=== PATIENT | female | born 1985 | race Caucasian/White ===

== ENCOUNTER 2024-12-28 18:54 | Inpatient (IN) ==
--- NOTE | 2024-12-28 19:22 | Emergency Department Note ---
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 The patient notes that she has undergone 6 weeks of radiation to the LLE. Over the past week she has noted a color change to the left medial ankle that tracks through the calf region medially near the incision site. Patient notes increasing pain. She notes trouble bearing weight secondary to the pain. She denies any fevers, chills, nausea or vomiting. The patient is currently on immunotherapy last of which was administered in late November, last month. Home Medications Medication Instructions Recorded Confirmed Type Bacillus coagulans 10 billion cell 10 cell PO DAILY 10/26/24 12/28/24 History capsule,delayed release (Probiotic (B. coagulans)) K3 2 tab PO DAILY 10/26/24 12/28/24 History Magnesium 1 tab PO DAILY 10/26/24 12/28/24 History Tudca 1 tab PO DAILY 10/26/24 12/28/24 History arginix 2 tab PO DAILY 10/26/24 12/28/24 History beef organ complex 1 dose PO DAILY 10/26/24 12/28/24 History berberine chloride 500 mg capsule 1,000 mg PO DAILY 10/26/24 12/28/24 History cholecalciferol (vitamin D3) 25 1,000 unit PO DAILY 10/26/24 12/28/24 History mcg (1,000 unit) capsule congaplex 3 tab PO DAILY 10/26/24 12/28/24 History greens powder 1 dose PO DAILY 10/26/24 12/28/24 History mushroom complex 3 tab PO DAILY 10/26/24 12/28/24 History oxycodone-acetaminophen 5 mg-325 1 tab PO Q6H PRN Pain 10/26/24 12/28/24 History mg tablet quercetin 500 mg capsule 500 mg PO DIRECTED 10/26/24 12/28/24 History selenium 200 mcg capsule 200 mcg PO DAILY 10/26/24 12/28/24 History zinc 1 tab PO DAILY 10/26/24 12/28/24 History lidocaine 5 % topical cream 1 applic topical QID PRN pain #30 12/19/24 12/28/24 Rx grams silver sulfadiazine 1 % topical 1 applic topical BID Radiation 12/19/24 12/28/24 Rx cream (Silvadene) dermatitis. 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 History of surgery on lower extremity excision of left lower leg soft tissue sarcoma @ [facility] 10/11 S/P abdominoplasty 2005 Status post cholecystectomy Family History (Updated 10/26/24 @ 09:30 by Val Peralta RN) Grandmother (Maternal) Cancer Colon and breast Heart disease Social History Smoking Status: Never smoker Second Hand Exposure: Yes (childhood ); Hx Alcohol Use: No Hx Substance Use: No Preferred Language: Chinese Communication Ability: Effective Visual Impairment: Limited Hearing Ability: Normal Beliefs That Will Affect Care: None marital status: Current Living Situation: Spouse current occupational status: employed 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 How many Children do You have: 2 Feels Safe at Home: Yes Diet: regular during the past year weight has: remained stable Gender Identity: Female Assistive Devices: Crutches and Glasses Review of Systems A total of 10 systems reviewed and were otherwise negative Physical Exam Vital Signs Vital Signs - 24 hr 12/28/24 18:57 12/28/24 22:19 12/28/24 22:19 Temperature 36.4 C L Temperature Source Temporal Artery Scan Pulse Rate 92 H Pulse Rate from SpO2 Sensor Respiratory Rate 18 Respiratory Effort / Characteristics Non-Labored Spontaneous Respiratory Depth Normal Respiratory Pattern Regular Blood Pressure 145/100 H 131/92 131/92 Blood Pressure Mean 115 110 110 Blood Pressure Position Sitting Pulse Oximetry 98 98 Oxygen Delivery Method Room Air Sepsis Recent Fever Within 48 Hours No Sepsis New/Unexplained Change in Mental Status N/A Sepsis Action Taken by Nursing No Action Required 12/28/24 22:19 12/28/24 22:19 12/28/24 22:19 Temperature Temperature Source Pulse Rate Pulse Rate from SpO2 Sensor Respiratory Rate Respiratory Effort / Characteristics Respiratory Depth Respiratory Pattern Blood Pressure 131/92 131/92 131/92 Blood Pressure Mean 110 110 110 Blood Pressure Position Pulse Oximetry Oxygen Delivery Method Sepsis Recent Fever Within 48 Hours Sepsis New/Unexplained Change in Mental Status Sepsis Action Taken by Nursing 12/28/24 22:19 12/28/24 22:19 12/28/24 22:19 Temperature Temperature Source Pulse Rate Pulse Rate from SpO2 Sensor Respiratory Rate Respiratory Effort / Characteristics Respiratory Depth Respiratory Pattern Blood Pressure 131/92 131/92 131/92 Blood Pressure Mean 110 110 110 Blood Pressure Position Pulse Oximetry Oxygen Delivery Method Sepsis Recent Fever Within 48 Hours Sepsis New/Unexplained Change in Mental Status Sepsis Action Taken by Nursing 12/28/24 22:19 12/28/24 22:19 12/28/24 22:19 Temperature Temperature Source Pulse Rate Pulse Rate from SpO2 Sensor Respiratory Rate Respiratory Effort / Characteristics Respiratory Depth Respiratory Pattern Blood Pressure 131/92 131/92 131/92 Blood Pressure Mean 110 110 110 Blood Pressure Position Pulse Oximetry Oxygen Delivery Method Sepsis Recent Fever Within 48 Hours Sepsis New/Unexplained Change in Mental Status Sepsis Action Taken by Nursing 12/28/24 22:19 12/28/24 22:19 12/28/24 22:21 Temperature Temperature Source Pulse Rate 77 Pulse Rate from SpO2 Sensor 76 Respiratory Rate Respiratory Effort / Characteristics Respiratory Depth Respiratory Pattern Blood Pressure 131/92 131/92 Blood Pressure Mean 110 110 Blood Pressure Position Pulse Oximetry 97 Oxygen Delivery Method Sepsis Recent Fever Within 48 Hours Sepsis New/Unexplained Change in Mental Status Sepsis Action Taken by Nursing 12/28/24 23:01 12/28/24 23:10 12/28/24 23:18 Temperature Temperature Source Pulse Rate 81 79 Pulse Rate from SpO2 Sensor Respiratory Rate 12 Respiratory Effort / Characteristics Non-Labored Respiratory Depth Normal Respiratory Pattern Blood Pressure Blood Pressure Mean Blood Pressure Position Pulse Oximetry Oxygen Delivery Method Sepsis Recent Fever Within 48 Hours Sepsis New/Unexplained Change in Mental Status Sepsis Action Taken by Nursing 12/28/24 23:21 12/28/24 23:33 12/28/24 23:45 Temperature Temperature Source Pulse Rate 78 74 78 Pulse Rate from SpO2 Sensor Respiratory Rate 17 17 13 Respiratory Effort / Characteristics Respiratory Depth Respiratory Pattern Blood Pressure Blood Pressure Mean Blood Pressure Position Pulse Oximetry Oxygen Delivery Method Sepsis Recent Fever Within 48 Hours Sepsis New/Unexplained Change in Mental Status Sepsis Action Taken by Nursing 12/29/24 00:29 Temperature Temperature Source Pulse Rate Pulse Rate from SpO2 Sensor Respiratory Rate Respiratory Effort / Characteristics Respiratory Depth Respiratory Pattern Blood Pressure Blood Pressure Mean Blood Pressure Position Pulse Oximetry Oxygen Delivery Method Room Air Sepsis Recent Fever Within 48 Hours Sepsis New/Unexplained Change in Mental Status Sepsis Action Taken by Nursing VITAL SIGNS - Vital signs and nursing notes were reviewed. Stable and afebrile. GENERAL - 39-year-old female appearing her stated age who is in no acute distress. Communicates well with provider and answers questions appropriately. SKIN -the left ankle area does have a darkened erythematous hue with surrounding purpleish regions and whitish regions. Proximal to this there is a well- approximated and healed incision tracking throughout the medial aspect of the left lower extremity with surrounding erythema. Mild edema to this area noted as well. HEAD - NC/AT. EYES - PERRL with EOMI bilaterally. Sclera anicteric. EARS - No deformities of external structures noted on gross examination bilaterally. NOSE - Midline and without cyanosis. No epistaxis or purulent drainage noted. MOUTH/OROPHARYNX - Without perioral cyanosis. NECK - Neck with FROM. No nuchal rigidity. LUNGS - CTA CARDIAC - RRR EXTREMITIES - No clubbing or peripheral cyanosis. Skin as above. Left medial ankle region tender to palpation. Left results pedis pulse within normal limits. No bony tenderness. No crepitus. +5/5 strength noted in UE/LE bilaterally. NEUROLOGIC - Cranial nerves II through XII grossly intact. Sensory intact at the left lower extremity without deficit. PSYCH - alert, oriented and pleasant on exam Course Administered Medications Fluticasone Propionate (Fluticasone Propionate Na Spr 16 Gm Btl) 2 sprays NA BID RACHELE Stop: 01/27/25 22:44 Last Admin: 12/28/24 23:57 Dose: 2 sprays Documented By: MILES Discontinued Medications Cefepime HCl (Maxipime 2000mg) 2,000 mg in 20 mls @ 5 mls/min IV NOW STA; Protocol Stop: 12/28/24 21:40 Last Admin: 12/28/24 22:11 Dose: 5 mls/min Documented By: MILES Daptomycin 500 mg/ Syringe 10 mls @ 5 mls/min IV NOW ONE; Protocol Stop: 12/28/24 22:46 Last Admin: 12/28/24 22:53 Dose: 5 mls/min Documented By: MILES Medical Decision Making Laboratory Data 12/28/24 19:58 12/28/24 19:58 Lab Results 12/28/24 Range/Units 19:58 WBC 7.26 (4.8-10.8) K/ul RBC 4.71 (4.20-5.40) M/uL Hgb 13.4 (12.0-16.0) g/dl Hct 40.4 (37.0-47.0) % MCV 85.8 (80.0-100.0) fL MCH 28.5 (25.0-34.0) pg MCHC 33.2 (32.0-36.0) g/dL RDW Std Deviation 38.3 (36.4-46.3) fL RDW Coeff of Sara 12.3 (11.5-14.5) % Plt Count 279 (130-400) K/uL MPV 9.3 L (9.4-12.4) fL Immature Gran % (Auto) 0.3 % Neut % (Auto) 55.0 % Lymph % (Auto) 29.9 % [place] % (Auto) 8.3 % Eos % (Auto) 5.1 % Baso % (Auto) 1.4 % Neut # (Auto) 4.00 (1.40-6.50) K/uL Lymph # (Auto) 2.17 (1.20-3.40) K/uL [place] # (Auto) 0.60 H (0.11-0.59) K/uL Eos # (Auto) 0.37 (0.00-0.50) K/uL Baso # (Auto) 0.10 (0.00-0.20) K/uL Immature Gran # (Auto) 0.02 (0.01-0.20) K/uL ESR 13 (0-20) mm/hr Sodium 139 (136-145) mmol/L Potassium 3.9 (3.5-5.1) mmol/L Chloride 105 (98-107) mmol/L Carbon Dioxide 29 (21-32) mmol/L Anion Gap 5 (3-11) BUN 18 (6-23) mg/dl Creatinine 0.96 (0.6-1.2) mg/dl Est Cr Clr Drug Dosing 92.5 ml/min eGFR 78.15 BUN/Creatinine Ratio 18.8 (10-20) Glucose 92 (70-99(Fasting)) mg/dl Calcium 9.4 (8.6-10.3) mg/dl Total Bilirubin 0.3 (0.2-1.0) mg/dl AST 21 (13-39) U/L ALT 32 (7-52) U/L Alkaline Phosphatase 67 (34-104) U/L Total Protein 6.9 (6.0-8.3) gm/dl Albumin 4.4 (3.4-5.0) gm/dl Globulin 2.5 (2.5-4.0) gm/dl Albumin/Globulin Ratio 1.8 (0.9-2) Procalcitonin < 0.02 (0-0.5) ng/ml HCG, Qual Negative (Negative) Imaging Data Radiologist's Impression: Venous Doppler Study 12/28/24 19:30 Exam(s): US VENOUS LEFT LOWER EXTREMITY EXAM: US Duplex Left Lower Extremity Veins CLINICAL HISTORY: Reason for exam: L leg edema, hx radiation and sarcoma surgery. TECHNIQUE: Real-time duplex ultrasound scan of the left lower extremity veins integrating B-mode two-dimensional vascular structure, Doppler spectral analysis, color flow Doppler imaging and compression. COMPARISON: No relevant prior studies available. FINDINGS: Deep veins: No DVT in the visualized common femoral, femoral, proximal deep femoral or popliteal veins. The veins demonstrate normal color flow, are normally compressible, with normal phasic flow and/or augmentation response. Superficial veins: No thrombus in the visualized great saphenous vein. Soft tissues: There is soft tissue edema.. IMPRESSION: No ultrasound evidence of deep venous thrombosis in the left lower extremity.. Electronically signed by: Chas Whiting MD 12/28/24 23:05 PM Ankle X-Ray 12/28/24 19:32 INDICATION: Infection. Pain. TECHNIQUE: 3 views of the left ankle. 2 views of the left tibia/fibula. COMPARISON: No relevant priors. FINDINGS: No acute fracture or dislocation. No lytic or blastic bony lesions seen. No evidence of cortical erosion. Mild degenerative changes in the midfoot. Soft tissue swelling. Surgical clips noted. IMPRESSION: Soft tissue swelling without acute osseous abnormality evident. Electronically signed by Zheng Blake 12-28-2024 8:07 PM Tibia/Fibula X-Ray 12/28/24 19:32 INDICATION: Infection. Pain. TECHNIQUE: 3 views of the left ankle. 2 views of the left tibia/fibula. COMPARISON: No relevant priors. FINDINGS: No acute fracture or dislocation. No lytic or blastic bony lesions seen. No evidence of cortical erosion. Mild degenerative changes in the midfoot. Soft tissue swelling. Surgical clips noted. IMPRESSION: Soft tissue swelling without acute osseous abnormality evident. Electronically signed by Zheng Blake 12-28-2024 8:[address] 12/28/24 22:14 Exam(s): CT LEFT ANKLE Without Contrast EXAM: CT Left Lower Extremity Without Intravenous Contrast, Ankle CLINICAL HISTORY: Reason for exam: Concern for osteomyelitis. TECHNIQUE: Axial computed tomography images of the left ankle without intravenous contrast. CTDI is 24.91 mGy and DLP is 583.95 mGy-cm. Automated exposure control was utilized for the study. A dose lowering technique was utilized adhering to the principles of ALARA. COMPARISON: X-rays dated 12/28/2024. FINDINGS: Bones/joints: No acute fracture. No dislocation. There is osteopenia. No gross bony destruction is seen. Soft tissues: Surgical clips are seen. There is soft tissue swelling and edema. No discrete fluid collection is seen.. IMPRESSION: There is soft tissue swelling and edema. Osteopenia. If further evaluation is clinically necessary, consider correlation with MRI Electronically signed by: Chas Whiting MD 12/28/24 23:20 PM [facility] Narrative Patient was seen and evaluated as above in room C11b. Review was performed of triage nursing notes and vital signs. I did review pertinent visits and patient history. After obtaining a thorough history and physical examination the above work up was performed. Patient presents for evaluation of possible infection to the left lower extremity. Erythema of the left lower extremity may be postradiation versus developing cellulitis/infection. Options of care were discussed with the patient. IV access was established. Labs were drawn. Left tib/fib and left ankle x-rays were performed. The monitor projection these were negative for radiographic evidence of osteomyelitis. Soft tissue edema noted. Formal radiology report is as above. Left Doppler study negative for DVT. Labs reveal no leukocytosis or concerning anemia. No emergent metabolic disturbance. Procalcitonin as well as inflammatory markers thus far are negative at this time. CRP still pending. I discussed options with the patient. He developing cellulitis/infection is still possible. I do believe that IV antibiotics and further evaluation and management in the inpatient setting is warranted. IV cefepime ordered. Case discussed with the hospitalist service. Please refer to further documentation regarding her stay. GCS: 15 In the evaluation and treatment of this patient the following differential diagnoses were entertained: Cellulitis, abscess, osteomyelitis, necrotizing fasciitis, postradiation integument change, among others Impression & Plan Leg edema, left, Cellulitis Discharge Plan Visit Data Chief Complaint: Infection Stated Complaint: POSSIBLE ANKLE INFECTION ED Provider: Maciej Bazan ED Midlevel Provider: Bud Nye Discharge Problem: Leg edema, left, Cellulitis Patient Disposition: Admitted As Inpatient Condition: Good Discharge Instructions Interventions: ED Discharge Assessment Last Done: 12/29/24 00:29 Forms Stand Alone Forms: My [facility] [employer] Prescriptions Prescriptions: No Action oxycodone-acetaminophen 5-325 mg tablet 1 tab PO Q6H PRN (Reason: Pain) Tudca 1 tab PO DAILY berberine chloride 500 mg capsule 1,000 mg PO DAILY Magnesium 1 tab PO DAILY Probiotic (B. coagulans) 10 billion cell capsule,delayed release(DR/EC) 10 cell PO DAILY quercetin 500 mg capsule 500 mg PO DIRECTED selenium 200 mcg capsule 200 mcg PO DAILY cholecalciferol (vitamin D3) 25 mcg (1,000 unit) capsule 1,000 unit PO DAILY arginix 2 tab PO DAILY beef organ complex 1 dose PO DAILY mushroom complex 3 tab PO DAILY zinc 1 tab PO DAILY K3 2 tab PO DAILY greens powder 1 dose PO DAILY congaplex 3 tab PO DAILY silver sulfadiazine [Silvadene] 1 % cream 1 applic topical BID Qty: 85 4RF Rx Instructions: apply a 1.5 mm thickness lidocaine 5 % cream 1 applic topical QID PRN (Reason: pain) Qty: 30 4RF tramadol 50 mg tablet 50 mg PO Q8H PRN (Reason: pain) Qty: 60 3RF Referrals Referrals: Carmen Washington PA-C [Primary Care Provider] -
--- NOTE | 2024-12-28 20:07 | XRay Report ---
INDICATION: Infection. Pain. TECHNIQUE: 3 views of the left ankle. 2 views of the left tibia/fibula. COMPARISON: No relevant priors. FINDINGS: No acute fracture or dislocation. No lytic or blastic bony lesions seen. No evidence of cortical erosion. Mild degenerative changes in the midfoot. Soft tissue swelling. Surgical clips noted. IMPRESSION: Soft tissue swelling without acute osseous abnormality evident. Electronically signed by Zheng Blake 12-28-2024 8:07 PM
[2024-12-28 20:20] LABS: Basophils % (auto) 1.4 %; Eosinophils # (auto) 0.37 K/uL (0.00-0.50); Eosinophils % (auto) 5.1 %; Hematocrit (blood only) 40.4 % (37.0-47.0); Hemoglobin 13.4 g/dl (12.0-16.0); Immature Granulocytes # (auto) 0.02 K/uL (0.01-0.20); Immature Granulocytes % (auto) 0.3 %; Lymphocytes # (auto) 2.17 K/uL (1.20-3.40); Lymphocytes % (auto) 29.9 %; Mean Corpuscular Hemoglobin 28.5 pg (25.0-34.0); Mean Corpuscular Hgb Conc 33.2 g/dL (32.0-36.0); Mean Corpuscular Volume 85.8 fL (80.0-100.0); Mean Platelet Volume 9.3 fL (9.4-12.4); Monocytes % (auto) 8.3 %; Platelet Count 279 K/uL (130-400); RDW Coefficient of Variation 12.3 % (11.5-14.5); RDW Standard Deviation 38.3 fL (36.4-46.3); Red Blood Count 4.71 M/uL (4.20-5.40); White Blood Count 7.26 K/ul (4.8-10.8)
[2024-12-28 20:35] LABS: Albumin Globulin Ratio 1.8 (0.9-2); Albumin Level 4.4 gm/dl (3.4-5.0); BUN Creatinine Ratio 18.8 (10-20); Bilirubin,Total 0.3 mg/dl (0.2-1.0); Calcium 9.4 mg/dl (8.6-10.3); Creatinine Clr Calc Pharmacy 92.5 ml/min; Globulin 2.5 gm/dl (2.5-4.0); Potassium 3.9 mmol/L (3.5-5.1); Total Protein 6.9 gm/dl (6.0-8.3)
[2024-12-28 20:36] LABS: Pregnancy Test, Serum Negative (Negative)
--- NOTE | 2024-12-28 22:02 | History & Physical Report ---
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 she presented to the ED for left lower extremity swelling, pain, and wound. She is being admitted for IV antibiotics for hospital-acquired cellulitis ankle CT ordered to further assess for osteomyelitis. #LLE cellulitis immunocompromised on current immunotherapy for sarcoma Hospital-acquired Not septic on admission, no leukocytosis, VSS, afebrile ESR 13, Pro-Jose G negative, CRP pending Ankle and tibia/fibula XR negative for osteomyelitis Venous Doppler negative Ankle CT ordered for further assessment for osteomyelitis - negative - soft tiss ue swelling, edema, osteopenia Follow blood cultures Wound cultures ordered Coverage with cefepime and daptomycin #sarcoma Left lower extremity and right lung s/p radiation on current immunotherapy with atezolizumab (last dose 12/15, every 3 weeks) follows with [facility], to have appointment 12/[address] Gutierrez at [facility] continue home oxycodone and tramadol as needed #nasal congestion/allergies Flonase ordered VTE ppx: SCDs, low risk Diet: regular Dispo: med surg Admission and Anticipated Discharge Date Admission Date: 12/28/24 History of Present Illness Chief Complaint: infection Primary Care Provider: Carmen Washington PA-C Patient is a 39-year-old female with a past medical history of oligometastatic alveolar soft tissue sarcoma involving living left lower extremity and right lung s/p radiation on current immunotherapy with atezolizumab. she presented to the ED for left lower extremity swelling, pain, and wound. She is being admitted for IV antibiotics for hospital-acquired cellulitis ankle CT ordered to further assess for osteomyelitis. Patient seen at bedside with present. She stated about a week ago she developed left lower extremity pain and the wound began to develop at the bottom of her previous scar. Has had clear drainage, she denies any purulent drainage. She was receiving vitamins today when the provider was concerned and told her to come into the ED. Patient denies fever, chills, dyspnea, chest pain, numbness, tingling. She does endorse rhinorrhea, requesting nasal decongestant, Flonase ordered. She denies nicotine use and alcohol use. No other significant past medical history. Her only home medications consist of supplements. She wishes to be full code. Her last dose of immunotherapy was December 15. She is to have an appointment with [facility] tomorrow, day team to coordinate possible televisit? Allergies Allergy/AdvReac Type Severity Reaction Status Date / Time fentanyl Allergy Mild Itching Verified 12/28/24 20:37 oxycodone Allergy Mild Itching Verified 12/28/24 20:37 Home Medications Medication Instructions Recorded Confirmed Type Bacillus coagulans 10 billion cell 10 cell PO DAILY 10/26/24 12/28/24 History capsule,delayed release (Probiotic (B. coagulans)) K3 2 tab PO DAILY 10/26/24 12/28/24 History Magnesium 1 tab PO DAILY 10/26/24 12/28/24 History Tudca 1 tab PO DAILY 10/26/24 12/28/24 History arginix 2 tab PO DAILY 10/26/24 12/28/24 History beef organ complex 1 dose PO DAILY 10/26/24 12/28/24 History berberine chloride 500 mg capsule 1,000 mg PO DAILY 10/26/24 12/28/24 History cholecalciferol (vitamin D3) 25 1,000 unit PO DAILY 10/26/24 12/28/24 History mcg (1,000 unit) capsule congaplex 3 tab PO DAILY 10/26/24 12/28/24 History greens powder 1 dose PO DAILY 10/26/24 12/28/24 History mushroom complex 3 tab PO DAILY 10/26/24 12/28/24 History oxycodone-acetaminophen 5 mg-325 1 tab PO Q6H PRN Pain 10/26/24 12/28/24 History mg tablet quercetin 500 mg capsule 500 mg PO DIRECTED 10/26/24 12/28/24 History selenium 200 mcg capsule 200 mcg PO DAILY 10/26/24 12/28/24 History zinc 1 tab PO DAILY 10/26/24 12/28/24 History lidocaine 5 % topical cream 1 applic topical QID PRN pain #30 12/19/24 12/28/24 Rx grams silver sulfadiazine 1 % topical 1 applic topical BID Radiation 12/19/24 12/28/24 Rx cream (Silvadene) dermatitis. #85 grams tramadol 50 mg tablet 50 mg PO Q8H PRN pain #60 tabs 12/21/24 12/28/24 Rx Past Med/Surg History Problem List (Updated 12/29/24 @ 00:41 by Bud Nye PA-C) Allergies Cellulitis (Acute) Sarcoma of left lower extremity (Chronic 03/25/24) Lower leg mass Leg edema, left (Acute) Medical History Anxiety Alveolar soft part sarcoma Surgical History History of lung surgery wedge excision of left middle lobe metastatic mass History of surgery on lower extremity excision of left lower leg soft tissue sarcoma @ [facility] 10/11 S/P abdominoplasty 2005 Status post cholecystectomy Family History (Updated 10/26/24 @ 09:30 by Val Peralta RN) Grandmother (Maternal) Cancer Colon and breast Heart disease Social History Smoking Status: Never smoker Second Hand Exposure: Yes (childhood ); Hx Alcohol Use: No Hx Substance Use: No Preferred Language: Cook Islander Communication Ability: Effective Visual Impairment: Limited Hearing Ability: Normal Beliefs That Will Affect Care: None marital status: Current Living Situation: Family Current Living Situation Comment: 2 kids current occupational status: employed 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 Non-toxic appearing. HEENT- EOMI, mucous membranes moist. Hearing grossly intact. Heart-normal S1 and S2. No murmurs, rubs or gallops. Lungs-clear bilaterally, no respiratory distress, no accessory muscle use. Abdomen-normal bowel sounds and soft. No ascites noted. Non-tender. Extremities- no clubbing, cyanosis, or edema. Left lower extremity with wound to distal scar, no drainage noted. Mild surrounding erythema. Rheumatologic-normal range of motion. Psychiatric-normal affect. Results & Data Results & Data Vital Signs (Past 12 Hours) Vital Signs Temp Pulse Resp BP Pulse Ox O2 Del Method 12/28/24 18:57 36.4 C L 92 H 18 145/100 H 98 Room Air Laboratory Results reviewed CBC, CMP, ESR, CRP, Pro-Jose G, hCG Diagnostic Findings reviewed tibia/fibula XR, ankle XR venous Doppler pending on admission Ankle CT ordered on admission Medications Administered EDcefepime 2G IV Admissiondaptomycin 600 Mg IV, Flonase ECG Additional Comments: ordered Code Status & VTE Plan Code Status full VTE Prophylaxis Plan VTE Prophylaxis will be ordered: Yes Supervising Physician Co-Signing Physician Notes Attending addendum: I have physically seen this patient, have supervised the medical residents activities, and agree with the H&P unless as otherwise noted. Assessment and Plan: The patient is a 39-year-old female with a past medical history including oligometastatic alveolar soft tissue sarcoma involving the left lower extremity, status post surgery at [facility] on 10/05/2024, having undergone 6 weeks of radiation therapy, and presently undergoing immunotherapy with atezolizumab. She presents to the emergency department with concerns regarding left lower extremity swelling, pain and worsening wound. She is being referred to the [facility] hospitalist service for cellulitis of the left lower extremity and ankle, for treatment with IV antibiotics. #Left lower extremity cellulitis- Immunocompromise state Hospital associated/acquired Ankle and tibia/fibula x-rays negative for osteomyelitis but do show soft tissue swelling Left lower extremity venous Doppler negative for DVT CT scan left lower extremity negative for osteomyelitis, does show soft tissue swelling, edema and osteopenia Follow wound cultures and sensitivities Follow blood cultures and sensitivities Placed on daptomycin IV and cefepime IV pending cultures Sarcoma- Coordinate care with [facility] in the a.m., reportedly has a follow-up appointment in 12/28 Continue pain management with oxycodone and tramadol as needed Radiation therapy with Dr. Gutierrez PG Care Time/CCT Total # of Minutes Spent Total Time Spent with Patient: Total time spent is greater than 50% in coordination of care (as documented) at patient's floor/unit and/or counseling patient: Coding Level of Care Code 33417 INT INP/OBS CARE MIN Diagnoses Cellulitis L03.90 Sarcoma of left lower extremity C49.22 Allergies T78.40XA
[2024-12-28] MEDS: CEFEPIME 2000MG 2,000 MG/20 ML SYR IV STA (22:11)
[2024-12-28] MEDS: DAPTOmycin 500 MG in SYRINGE 0 ML IV ONE (22:53)
--- NOTE | 2024-12-28 23:07 | Ultrasound Report ---
Exam(s): US VENOUS LEFT LOWER EXTREMITY EXAM: US Duplex Left Lower Extremity Veins CLINICAL HISTORY: Reason for exam: L leg edema, hx radiation and sarcoma surgery. TECHNIQUE: Real-time duplex ultrasound scan of the left lower extremity veins integrating B-mode two-dimensional vascular structure, Doppler spectral analysis, color flow Doppler imaging and compression. COMPARISON: No relevant prior studies available. FINDINGS: Deep veins: No DVT in the visualized common femoral, femoral, proximal deep femoral or popliteal veins. The veins demonstrate normal color flow, are normally compressible, with normal phasic flow and/or augmentation response. Superficial veins: No thrombus in the visualized great saphenous vein. Soft tissues: There is soft tissue edema.. IMPRESSION: No ultrasound evidence of deep venous thrombosis in the left lower extremity.. Electronically signed by: Chas Whiting MD 12/28/24 23:05 PM
--- NOTE | 2024-12-28 23:21 | CT Scan Report ---
Exam(s): CT LEFT ANKLE Without Contrast EXAM: CT Left Lower Extremity Without Intravenous Contrast, Ankle CLINICAL HISTORY: Reason for exam: Concern for osteomyelitis. TECHNIQUE: Axial computed tomography images of the left ankle without intravenous contrast. CTDI is 24.91 mGy and DLP is 583.95 mGy-cm. Automated exposure control was utilized for the study. A dose lowering technique was utilized adhering to the principles of ALARA. COMPARISON: X-rays dated 12/28/2024. FINDINGS: Bones/joints: No acute fracture. No dislocation. There is osteopenia. No gross bony destruction is seen. Soft tissues: Surgical clips are seen. There is soft tissue swelling and edema. No discrete fluid collection is seen.. IMPRESSION: There is soft tissue swelling and edema. Osteopenia. If further evaluation is clinically necessary, consider correlation with MRI Electronically signed by: Chas Whiting MD 12/28/24 23:20 PM
[2024-12-28] MEDS: FLUTICASONE PROPIONATE NA SPR 16 GM BTL SCH (23:57)
[2024-12-29] MEDS ORDERED: ONDANSETRON INJ 2 MG/ML 2 ML VIAL IV PRN (00:53)
[2024-12-29] MEDS ORDERED: DOCUSATE SODIUM 100 MG CAP PO PRN (00:53)
[2024-12-29] MEDS ORDERED: traMADol HCL 50 MG TABLET PO PRN (00:53)
[2024-12-29] MEDS ORDERED: oxyCODONE/ACETAMINOPHEN 5mg/325mg TAB PO PRN (00:53)
[2024-12-29] MEDS ORDERED: ACETAMINOPHEN 325 MG TAB PO PRN (00:53)
[2024-12-29 00:59] LABS: C Reactive Protein 1.17 mg/dl (0-0.5)
[2024-12-29] MEDS ORDERED: HYDROcodone/ACETAMINOPHEN 10/325 TAB PO PRN (01:10)
[2024-12-29] MEDS: MELATONIN 3 MG TAB PO PRN (01:46)
[2024-12-29] MEDS: HYDROCODONE/ACETAMOPHEN 5/325MG TAB PO PRN (01:46)
[2024-12-29 06:36] LABS: Basophils % (auto) 1.3 %; Eosinophils # (auto) 0.45 K/uL (0.00-0.50); Eosinophils % (auto) 5.9 %; Hematocrit (blood only) 38.2 % (37.0-47.0); Hemoglobin 12.6 g/dl (12.0-16.0); Immature Granulocytes # (auto) 0.03 K/uL (0.01-0.20); Immature Granulocytes % (auto) 0.4 %; Lymphocytes # (auto) 2.26 K/uL (1.20-3.40); Lymphocytes % (auto) 29.7 %; Mean Corpuscular Hemoglobin 28.2 pg (25.0-34.0); Mean Corpuscular Volume 85.5 fL (80.0-100.0); Mean Platelet Volume 9.2 fL (9.4-12.4); Monocytes # (auto) 0.68 K/uL (0.11-0.59); Monocytes % (auto) 8.9 %; Neutrophils # (auto) 4.09 K/uL (1.40-6.50); Neutrophils % (auto) 53.8 %; Platelet Count 235 K/uL (130-400); RDW Coefficient of Variation 12.4 % (11.5-14.5); RDW Standard Deviation 38.5 fL (36.4-46.3); Red Blood Count 4.47 M/uL (4.20-5.40); White Blood Count 7.61 K/ul (4.8-10.8)
[2024-12-29 06:58] LABS: Albumin Globulin Ratio 1.9 (0.9-2); Albumin Level 3.9 gm/dl (3.4-5.0); BUN Creatinine Ratio 20.3 (10-20); Bilirubin,Total 0.3 mg/dl (0.2-1.0); Creatinine Clr Calc Pharmacy 112.2 ml/min; Globulin 2.1 gm/dl (2.5-4.0); Potassium 4.1 mmol/L (3.5-5.1)
[2024-12-29] MEDS: CEFEPIME 2000MG 2,000 MG/20 ML SYR IV SCH (09:03)
--- NOTE | 2024-12-29 09:22 | Infectious Disease Consult ---
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 The wound began to develop at the bottom of her previous scar, had clear drainage, no purulence. On admission, she was afebrile, vss. Initial labs with WBC wnl, Cr and LFT wnl. ESR 13, CRP 1.17. PCT < 0.02. LLE doppler negative. XR left ankle/tib/fib with soft tissue swelling, no osseous abnormality. CT LLE with osteopenia. She has been started on daptomycin and cefepime. ID consulted 12/29. CT and XR are negative for OM. She also has mildly elevated CRP and negative ESR. However, given the patients h/o malignancy and recent surgery, along with Achilles tendon pain, I do think we should pursue an MRI of the left ankle to r/o deeper infection. Especially since the symptoms started in 1 week and MRI may be better at detecting early OM. Will continue on current antibiotics and follow up on cultures prior to de-escalation. She has not had prior exposures to antibiotics. # LLE cellulitis with blisters # Soft tissue sarcoma involving LLE s/p surgical excision 09/2024, on immunotherapy - obtain MRI w and w/o contrast of left ankle - f/u wound and blood cx - continue daptomycin - continue cefepime Will continue to follow. If questions or concerns, contact via [employer] or Infectious Disease Call Center . Lynda Rey MD [facility], Division of Infectious Diseases Consultation Information Consultation was provided via telemedicine using two-way real-time interactive telecommunication between the patient and the telemedicine provider. For the duration of the visit, the provider was performing the assessment from a different facility than the patient. This includesuse of bluetooth stethoscope forauscultationperformed by the telepresenter that the telemedicine provider can hear if described in the physical exam. [employer] contact information: Please call [facility] Call Center . 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 The wound began to develop at the bottom of her previous scar, had clear drainage, no purulence. No SOB, chest pain. Did endorse rhinorrhea. On admission, she was afebrile, vss. Initial labs with WBC wnl, Cr and LFT wnl. ESR 13, CRP 1.17. PCT < 0.02. LLE doppler negative. XR left ankle/tib/fib with soft tissue swelling, no osseous abnormality. CT LLE with osteopenia. She has been started on daptomycin and cefepime. ID consulted 12/29. On evaluation, patient reports that she noticed redness in her ankle that then developed blisters. Draining clear fluid. She also notes restriction of motion and pain in her Achilles. She has been getting PT recently. No reported trauma. She also has redness on the length of her scar which she says is from the radiation, but the new changes are located at the ankle. No other rashes or open wounds. No abdominal pain, vomiting, or diarrhea. She has not been on antibiotics recently in the past several months. No prior skin infections. She had her surgery in September and had no issues postop. Allergies Allergy/AdvReac Type Severity Reaction Status Date / Time fentanyl Allergy Mild Itching Verified 12/28/24 20:37 oxycodone Allergy Mild Itching Verified 12/28/24 20:37 Home Medications Medication Instructions Recorded Confirmed Type Bacillus coagulans 10 billion cell 10 cell PO DAILY 10/26/24 12/28/24 History capsule,delayed release (Probiotic (B. coagulans)) K3 2 tab PO DAILY 10/26/24 12/28/24 History Magnesium 1 tab PO DAILY 10/26/24 12/28/24 History Tudca 1 tab PO DAILY 10/26/24 12/28/24 History arginix 2 tab PO DAILY 10/26/24 12/28/24 History beef organ complex 1 dose PO DAILY 10/26/24 12/28/24 History berberine chloride 500 mg capsule 1,000 mg PO DAILY 10/26/24 12/28/24 History cholecalciferol (vitamin D3) 25 1,000 unit PO DAILY 10/26/24 12/28/24 History mcg (1,000 unit) capsule congaplex 3 tab PO DAILY 10/26/24 12/28/24 History greens powder 1 dose PO DAILY 10/26/24 12/28/24 History mushroom complex 3 tab PO DAILY 10/26/24 12/28/24 History oxycodone-acetaminophen 5 mg-325 1 tab PO Q6H PRN Pain 10/26/24 12/28/24 History mg tablet quercetin 500 mg capsule 500 mg PO DIRECTED 10/26/24 12/28/24 History selenium 200 mcg capsule 200 mcg PO DAILY 10/26/24 12/28/24 History zinc 1 tab PO DAILY 10/26/24 12/28/24 History lidocaine 5 % topical cream 1 applic topical QID PRN pain #30 12/19/24 12/28/24 Rx grams silver sulfadiazine 1 % topical 1 applic topical BID Radiation 12/19/24 12/28/24 Rx cream (Silvadene) dermatitis. #85 grams tramadol 50 mg tablet 50 mg PO Q8H PRN pain #60 tabs 12/21/24 12/28/24 Rx Patient History Medical History Anxiety Alveolar soft part sarcoma Surgical History History of lung surgery wedge excision of left middle lobe metastatic mass History of surgery on lower extremity excision of left lower leg soft tissue sarcoma @ [facility] 10/11 S/P abdominoplasty 2004 Status post cholecystectomy Family History (Updated 10/26/24 @ 09:30 by Val Peralta RN) Grandmother (Maternal) Cancer Colon and breast Heart disease Social History Smoking Status: Never smoker Second Hand Exposure: Yes (childhood ); Hx Alcohol Use: No Hx Substance Use: No Preferred Language: Slovenian Communication Ability: Effective Visual Impairment: Limited Hearing Ability: Normal Beliefs That Will Affect Care: None marital status: Current Living Situation: Family Current Living Situation Comment: 2 kids current occupational status: employed 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 Physical Exam Physical Exam: General: Awake, alert, no acute distress HEENT: NC/AT, EOMI, mmm Neck: supple Lungs: respirations non-labored Heart: nl peripheral perfusion Abdomen: soft, NT/ND Ext: left medial ankle with erythema and dark discoloration, opened blisters, well-healed surgical scar along medial ankle to lower leg with redness along the scar, restricted ROM, ankle with swelling but nontender, anterior foot also with faint erythema Neuro: moving all extremities Results & Data Vital Signs (Past 12 Hours) Vital Signs Temp Pulse Pulse Resp BP BP Pulse Ox 12/29/24 07:26 36.8 C 82 18 119/72 96 12/29/24 01:01 36.4 C L 91 H 19 129/89 96 12/29/24 00:29 12/28/24 23:45 78 13 12/28/24 23:33 74 17 12/28/24 23:21 78 17 12/28/24 23:18 79 12 12/28/24 23:10 81 12/28/24 22:21 77 97 12/28/24 22:19 131/92 12/28/24 22:19 131/92 12/28/24 22:19 131/92 12/28/24 22:19 131/92 12/28/24 22:19 131/92 12/28/24 22:19 131/92 12/25 22:19 13112/28/24 22:19 13112/28/24 22:19 12/28/24 22:19 13112/28/24 22:19 13112/28/24 22:19 13112/28/24 22:19 98 O2 Del Method 12/29/24 07:26 Room Air 12/29/24 01:01 Room Air 12/29/24 00:29 Room Air 12/28/24 23:45 12/28/24 23:33 12/28/24 23:21 12/28/24 23:18 12/28/24 23:10 12/28/24 22:21 12/28/24 22:19 12/28/24 22:19 12/28/24 22:19 12/28/24 22:19 12/28/24 22:19 12/28/24 22:19 12/28/24 22:19 12/28/24 22:19 12/28/24 22:19 12/28/24 22:19 12/28/24 22:19 12/28/24 22:19 12/28/24 22:19 Laboratory Results Labs reviewed. Diagnostic Findings Imaging reviewed.
--- NOTE | 2024-12-29 10:33 | Hospitalist Progress Note ---
Date of Service December 29, 2024 Assessment & Plan (1) Cellulitis: Plan: Ankle and tibia/fibula XR negative for osteomyelitis Venous Doppler negative Ankle CT ordered for further assessment for osteomyelitis - negative - soft tissue swelling, edema, osteopenia Follow blood cultures Wound cultures ordered Coverage with cefepime and daptomycin ID consult appreciated MRI left ankle ordered to r/o osteo (2) Sarcoma of left lower extremity: Plan: Left lower extremity and right lung s/p radiation on current immunotherapy with atezolizumab (last dose 12/15, every 3 weeks) follows with [facility], to have appointment 12/[address] 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 she presented to the ED for left lower extremity swelling, pain, and wound. She is being admitted for IV antibiotics for hospital-acquired cellulitis ankle CT ordered to further assess for osteomyelitis. Admission and Anticipated Discharge Date Admission Date: December 28, 2024 Subjective No events overnight, pt resting in bed. Review of Systems Review of Systems: CONST: Negative for fever, body aches and chills. HENT: Negative for neck pain/stiffness, headache, congestion, sore throat, swe lling. EYES: Negative for discharge/pain or vision changes. RESP: Negative for cough/hemoptysis and shortness of breath. CV: Negative chest pain, difficulty breathing, palpitations. ABD: Negative pain, nausea, vomiting. : Negative increase frequency, dysuria, blood in urine or stool. MUSC: Negative for muscle aches, edema. SKIN: Negative rash, lesions/sores. NEURO: Negative headache, dizziness, weakness. Physical Exam Physical Exam: GENERAL APPEARANCE NAD, activity normal for age, well developed/ well nourished, no cyanosis, pallor, or diaphoresis. EYES lids/conjunctiva normal. EARS/NOSE/THROAT Mucous membranes moist, nares normal, lips/teeth normal uvula midline without oral pharyngeal erythema, exudate or swelling TMs normal bilaterally. No lymphangitis/lymphedema. HEAD/NECK normocephalic atraumatic, no facial trauma, neck is supple. RESPIRATORY respiratory effort normal, speaks in full sentences, no tripod position, no accessory muscle use. Lungs clear to auscultation without rhonchi, wheezes, rales CARDIAC Regular rate and rhythm, no edema. ABDOMINAL Soft, ND/NT. No evidence of fluid wave. No pulsatile masses on exam, rebound tenderness, Cobb sign or pain over Mcburney's point. MUSCLES/EXTREMITIES No abnormal range of motion, no swelling. SKIN Warm, pink and dry. No rashes, dermatoses, petechiae or lesions. Left ankle 2x2cm wound with surrounding erythema. NEUROLOGICAL Speech is clear and appropriate. Normal level of consciousness. Gait and coordination are normal. 5/5 strength in all extremities. PSYCH Normal mood and affect. Judgement/competence is appropriate Results & Data Results & Data Vital Signs (Past 12 Hours) Vital Signs Temp Pulse Pulse Resp BP Pulse Ox O2 Del Method 12/29/24 07:26 36.8 C 82 18 119/72 96 Room Air 12/29/24 01:01 36.4 C L 91 H 19 129/89 96 Room Air 12/29/24 00:29 Room Air 12/28/24 23:45 78 13 12/28/24 23:33 74 17 12/28/24 23:21 78 17 12/28/24 23:18 79 12 12/28/24 23:10 81 PG Care Time/CCT Total # of Minutes Spent Total Time Spent with Patient: Total time spent is greater than 50% in coordination of care (as documented) at patient's floor/unit and/or counseling patient: Coding Level of Care Code 67476 SUB INP/OBS CARE 2/35MIN Diagnoses Cellulitis L03.90 Sarcoma of left lower extremity C49.22 Allergies T78.40XA
--- NOTE | 2024-12-29 14:26 | Magnetic Resonance Report ---
MRI OF THE LEFT ANKLE WITHOUT CONTRAST CLINICAL HISTORY: Evaluate for osteomyelitis. Left lower extremity pain, swelling and wound. 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 COMPARISON STUDY: Left ankle CT December 28, 2024. MRIs of the left lower leg March 11, 2024 and August 05, 2024. TECHNIQUE: Utilizing a 1.5 Carmen magnet and dedicated coil, multiplanar, multiecho imaging of the lef t ankle and hindfoot was performed without intravenous contrast. FINDINGS: A marker was placed on the skin at site of wound/cellulitis. This overlies the medial aspec t of the left ankle. There is moderate corresponding subcutaneous edema with associated skin thickeni ng consistent with cellulitis. No fluid collection is identified on unenhanced exam to suggest absces s. Note is made of increased T2 signal within flexor musculature, most pronounced within the flexor h allucis longus. This is partially imaged on this exam. No mass-like abnormality is identified althoug h sensitivity for detection of recurrent disease is diminished on unenhanced exam. No marrow edema wi thin the left ankle, hindfoot or visualized portions of the midfoot is identified to suggest osteomye litis. Patchy increased T2 marrow signal within the left ankle, hindfoot and visualized portions of t he midfoot is present. Disc is not suggestive of osteomyelitis. The Achilles tendon is intact. The pl dianna fascia is intact. No osseous TR chondral defect is present. The flexor, extensor and peroneal t endons are intact. IMPRESSION: 1. Moderate subcutaneous edema and associated skin thickening of the medial left ankle consistent wit h cellulitis. 2. No fluid collection to suggest abscess. No evidence for osteomyelitis within the left ankle or hin dfoot. 3. Increased T2 signal within the flexor musculature, as described above. This may represent a nonspe cific myositis, possibly treatment related, or denervation. An infectious myositis is also within the differential but considered less likely. Sensitivity for detection of recurrent/residual disease is diminished on unenhanced exam but no suspicious findings identified. ACT 112: Negative or not required by law. Electronically signed by: Warren Sykes M.D. 12/29/2024 2:23 PM
[2024-12-29] MEDS: DAPTOmycin 500 MG in SYRINGE 0 ML IV SCH (21:27)
--- NOTE | 2024-12-29 22:44 | Electrocardiogram Report ---
Test Reason : Blood Pressure : */* mmHG Vent. Rate : 75 BPM Atrial Rate : 75 BPM P-R Int : 136 ms QRS Dur : 86 ms QT Int : 414 ms P-R-T Axes : 27 25 26 degrees QTcB Int : 462 ms Normal sinus rhythm Normal ECG When compared with ECG of 23-Mar-2024 12:17, No significant change was found Confirmed by Onel Chen ([id number]) on 12/29/2024 10:43:41 PM Referred By: REFERRED SELF Confirmed By: Onel Chen
[2024-12-30 08:07] VITALS: PULSE 73; RESP 18
--- NOTE | 2024-12-30 09:13 | Infectious Disease Progress Nt ---
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 The wound began to develop at the bottom of her previous scar, had clear drainage, no purulence. On admission, she was afebrile, vss. Initial labs with WBC wnl, Cr and LFT wnl. ESR 13, CRP 1.17. PCT < 0.02. LLE doppler negative. XR left ankle/tib/fib with soft tissue swelling, no osseous abnormality. CT LLE with osteopenia. She has been started on daptomycin and cefepime. ID consulted 12/29. MRI left ankle without abscess or OM, e/o myositis of flexor musculature, less likely infectious. Imaging negative for deep infection. I called micro lab and they said wound cultures currently have no growth. Patient says shed like to go home today. Since she has been improving, and no other recent abx exposures and no known resistant organisms, will de-escalate abx to augmentin. Will start now to ensure tolerability, which she can continue when she is discharged. # LLE cellulitis with blisters WCX so far no growth # Soft tissue sarcoma involving LLE s/p surgical excision 09/2024, on immunotherapy - f/u wound cx - [place] stopped daptomycin and cefepime - I started augmentin 875mg PO bid - continue abx for 7-10 days (start 12/28) - f/u with PCP Lynda Rey MD [facility], Division of Infectious Diseases [facility]: [phone] Admission and Anticipated Discharge Date Admission Date: December 28, 2024 Subjective Subsequent visit was provided via telemedicine using two-way real-time interactive telecommunication between the patient and the telemedicine provider. For the duration of the visit, the provider was performing the assessment from a different facility than the patient. This includesuse of bluetooth stethoscope forauscultationperformed by the telepresenter that the telemedicine provider can hear if described in the physical exam. [employer] Operator contact information: Please call [facility] Call Center . (Phone Number For Physician Use Only) After establishing a telemedicine visit, patient was: Patient was verified with two unique identifiers, Patient/authorized rep acknowledged consent and understanding and Gave permission to continue telehealth session Time Spent with Patient: Subsequent => 35 min Patient says the leg is getting better. Pain also improving. Physical Exam Physical Exam: General: Awake, alert, no acute distress HEENT: NC/AT, EOMI, mmm Neck: supple Lungs: respirations non-labored Heart: nl peripheral perfusion Abdomen: soft, NT/ND Ext: left medial ankle with erythema and dark discoloration, opened blisters Neuro: moving all extremities Results & Data Vital Signs (Past 12 Hours) Vital Signs Temp Pulse Pulse Resp BP Pulse Ox O2 Del Method 12/30/24 08:05 36.8 C 73 18 102/70 95 Room Air 12/29/24 21:57 36.9 C 75 16 133/72 97 Room Air Laboratory Results Labs reviewed. Diagnostic Findings Imaging reviewed.
--- NOTE | 2024-12-30 10:43 | Discharge Summary ---
Discharge Summary Date of Service December 30, 2024 Principal Dx & Hospital Course #1 = Principal Diagnosis (1) Cellulitis: Ankle and tibia/fibula XR negative for osteomyelitis Venous Doppler negative Ankle CT ordered for further assessment for osteomyelitis - negative - soft tissue swelling, edema, osteopenia Follow blood cultures Wound cultures ordered Coverage with cefepime and daptomycin ID consult appreciated MRI left ankle ordered to r/o osteo negative ID change abx to augmentin 875mg BID D/C home (2) Sarcoma of left lower extremity: Left lower extremity and right lung s/p radiation on current immunotherapy with atezolizumab (last dose 12/15, every 3 weeks) follows with [facility], to have appointment 12/[address] Gutierrez at 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 she presented to the ED for left lower extremity swelling, pain, and wound. She is being admitted for IV antibiotics for hospital-acquired cellulitis ankle CT ordered to further assess for osteomyelitis. Admission HPI Per Admitting Provider Patient is a 39-year-old female with a past medical history of oligometastatic alveolar soft tissue sarcoma involving living left lower extremity and right lung s/p radiation on current immunotherapy with atezolizumab. she presented to the ED for left lower extremity swelling, pain, and wound. She is being admitted for IV antibiotics for hospital-acquired cellulitis ankle CT ordered to further assess for osteomyelitis. Patient seen at bedside with present. She stated about a week ago she developed left lower extremity pain and the wound began to develop at the bottom of her previous scar. Has had clear drainage, she denies any purulent drainage. She was receiving vitamins today when the provider was concerned and told her to come into the ED. Patient denies fever, chills, dyspnea, chest pain, numbness, tingling. She does endorse rhinorrhea, requesting nasal decongestant, Flonase ordered. She denies nicotine use and alcohol use. No other significant past medical history. Her only home medications consist of supplements. She wishes to be full code. Her last dose of immunotherapy was December 15. She is to have an appointment with [facility] tomorrow, day team to coordinate possible televisit? Discharge Exam GENERAL APPEARANCE NAD, activity normal for age, well developed/ well nourished, no cyanosis, pallor, or diaphoresis. EYES lids/conjunctiva normal. EARS/NOSE/THROAT Mucous membranes moist, nares normal, lips/teeth normal uvula midline without oral pharyngeal erythema, exudate or swelling TMs normal bilaterally. No lymphangitis/lymphedema. HEAD/NECK normocephalic atraumatic, no facial trauma, neck is supple. RESPIRATORY respiratory effort normal, speaks in full sentences, no tripod position, no accessory muscle use. Lungs clear to auscultation without rhonchi, wheezes, rales CARDIAC Regular rate and rhythm, no edema. ABDOMINAL Soft, ND/NT. No evidence of fluid wave. No pulsatile masses on exam, rebound tenderness, Cobb sign or pain over Mcburney's point. MUSCLES/EXTREMITIES No abnormal range of motion, no swelling. SKIN Warm, pink and dry. No rashes, dermatoses, petechiae or lesions. Left ankle 2x2cm wound with surrounding erythema. NEUROLOGICAL Speech is clear and appropriate. Normal level of consciousness. Gait and coordination are normal. 5/5 strength in all extremities. PSYCH Normal mood and affect. Judgement/competence is appropriate Discharge Plan Discharge Items Patient Disposition: Home - Self-Care Reason For Visit: LLE CELLULITIS Discharge Diagnosis: LLE cellulitis Condition on Discharge: Good Activity: Resume your previous activity Non-emergency contact: Primary Care Provider Call non-emergency contact if: you have any medication questions Follow-up/Referrals: Carmen Washington PA-C [Primary Care Provider] - Diet: Regular Addtl Attending Provider Instructions: Follow up with PMD in 1 week Pending Studies at Discharge: No Stand-Alone Forms: My [employer] Document Management software, Smoking Cessation Medications and DC Order Prescriptions: New amoxicillin-pot clavulanate 875-125 mg Tablet 1 tab PO BIDM Qty: 20 0RF Continued oxycodone-acetaminophen 5-325 mg tablet 1 tab PO Q6H PRN (Reason: Pain) Tudca 1 tab PO DAILY berberine chloride 500 mg capsule 1,000 mg PO DAILY Magnesium 1 tab PO DAILY Probiotic (B. coagulans) 10 billion cell capsule,delayed release(DR/EC) 10 cell PO DAILY quercetin 500 mg capsule 500 mg PO DIRECTED selenium 200 mcg capsule 200 mcg PO DAILY cholecalciferol (vitamin D3) 25 mcg (1,000 unit) capsule 1,000 unit PO DAILY arginix 2 tab PO DAILY beef organ complex 1 dose PO DAILY mushroom complex 3 tab PO DAILY zinc 1 tab PO DAILY K3 2 tab PO DAILY greens powder 1 dose PO DAILY congaplex 3 tab PO DAILY silver sulfadiazine [Silvadene] 1 % cream 1 applic topical BID Qty: 85 4RF Rx Instructions: apply a 1.5 mm thickness lidocaine 5 % cream 1 applic topical QID PRN (Reason: pain) Qty: 30 4RF tramadol 50 mg tablet 50 mg PO Q8H PRN (Reason: pain) Qty: 60 3RF Discharge Orders: Discharge Order (Routine); Ordered 12/30/24 Ordered By: Yeyo Doss Admission Data Admit Date/Time: 12/28/24 22:41 Attending Provider: Yeyo Doss Admit Provider: León Braga Primary Care Provider: Carmen Washington Other Providers: Pascale Fernandez; Tesha Mata; Lynda Rey; Jody Chavarria; Nikole Keller; Sadia Glez; León Braga Hospital Stay Data Consultations 12/28/24 21:37 ED Decision to Admit Stat 12/29/24 07:39 Consult Infectious Diseases Routine Diagnostic Imagining Performed 12/28/24 19:30 US venous doppler LE LT Stat 12/28/24 22:14 CT ankle LT wo con Stat 12/29/24 10:26 MRI Ankle [MR ankle LT wo con] Routine Pending Results Patient Have Any Pending Studies at Discharge: No Discharge Instructions Given to Patient (Per Discharging Provider) Follow up with PMD in 1 week Total Time Total Time Spent Total Time Spent (In Minutes): 50 Coding Level of Care Code 84234 INP/OBS DISCH >30 MIN Diagnoses Cellulitis L03.90 Sarcoma of left lower extremity C49.22 Allergies T78.40XA
[2024-12-30 11:36] VITALS: BP 114/80; TEMP 97.9; O2SAT 99
[2024-12-30] MEDS ORDERED: AMOXICILLIN/CLAVULANATE 875 MG TAB PO SCH (17:00)
== END 2024-12-30 12:20 | disposition home or self-care (01) | DRG 603 ==
LOC: ED 18:54 → 3E 22:41 → SUATTDRO 22:41 → 3E 12-29 00:29